=== PATIENT | male | born 1950 | race Caucasian/White ===

== ENCOUNTER → 2024-05-29 07:18 | Outpatient (REF) | payer MEDICARE, OTHER, SELFPAY | LOC: RAD 07:18 | PROVIDERS: ATTENDING PHYSICIAN Student in an Organized Health Care Education/Training Program; FAMILY PHYSICIAN Family Medicine | DX: M47.816 Spondylosis without myelopathy or radiculopathy, lumbar region (principal); M41.86 Other forms of scoliosis, lumbar region; M54.50 Low back pain, unspecified | CPT/HCPCS: 72131 ==

== ENCOUNTER → 2024-08-30 09:48 | Outpatient (REF) | payer MEDICARE, OTHER, SELFPAY | LOC: HWRAD 09:48 | PROVIDERS: ATTENDING PHYSICIAN Internal Medicine Critical Care Medicine; FAMILY PHYSICIAN Family Medicine | DX: Z87.891 Personal history of nicotine dependence (principal) | CPT/HCPCS: 71271 ==

== ENCOUNTER → 2024-12-05 08:55 | Outpatient (REF) | payer MEDICARE, OTHER, SELFPAY | LOC: RCS 08:55 | PROVIDERS: ATTENDING PHYSICIAN Internal Medicine Cardiovascular Disease; FAMILY PHYSICIAN Family Medicine | DX: I48.0 Paroxysmal atrial fibrillation (principal) | CPT/HCPCS: 93306 ==

== ENCOUNTER 2025-06-05 09:03 | Inpatient (IN) | payer MEDICARE, OTHER, SELFPAY ==
[2025-06-05 09:22] VITALS: BP 126/84
--- NOTE | 2025-06-05 09:25 | PTCARENOTE ---
Addendum entered by Deborah Sotelo RN 06/05/25 11:46:
Pt has dressing on left upper chest (pacemaker site) Per Susana Tyler, do not remove dressing today. Dressing is CDI, pt offers no complaints of pain or discomfort at this time.
Original Note:
pt arrived as direct admit, VSS, Vpaced on tele. AOx3, no complaints of pain or discomfort. Independent OOB with cane. at bedside. Susana Tyler notified of arrival. Oriented to room and unit. Call catalan within reach.
[2025-06-05 10:23] LABS: Hematocrit 47.0 % (39.0-52.0); Hemoglobin 16.0 g/dL (13.0-18.0); Mean Corp Hgb Conc. 34.0 g/dL (33.0-37.0); Mean Corpuscular Volume 104.9 fL (80.0-94.0); Nucleated Red Blood Cells % 0 % (-); Platelet Count 176 10^3/uL (130-400); Red Cell Dist. Width 13.1 % (11.5-14.5)
[2025-06-05 10:49] LABS: ALT (SGPT) 21 U/L (0-50); AST (SGOT) 24 U/L (17-59); Albumin 4.4 g/dl (3.5-5.0); Alkaline Phosphatase 82 U/L (38-126); Blood Urea Nitrogen 17 mg/dl (9-20); Calcium 9.6 mg/dl (8.4-10.2); Carbon Dioxide 29 mmol/L (22-30); Chloride 102 mmol/L (98-107); Glucose 107 mg/dl (70-99); Magnesium 2.1 mg/dl (1.6-2.3); Potassium 4.3 mmol/L (3.5-5.1); Sodium 138 mmol/L (135-145); Total Protein 7.3 g/dl (6.3-8.2); eGFR > 60.00
[2025-06-05] MEDS: LASIX PO (11:05)
[2025-06-05] MEDS: MAGNESIUM OXIDE PO (11:05)
[2025-06-05] MEDS: APRESOLINE PO (11:05)
[2025-06-05] MEDS: MUCINEX PO (11:05)
[2025-06-05] MEDS: TOPROL XL PO (11:05)
[2025-06-05] MEDS: ZITHROMAX PO (11:06)
[2025-06-05] MEDS: KCL PO (11:06)
--- NOTE | 2025-06-05 11:51 | CON.CAR ---
Addendum entered and electronically signed by Marcio Rincon MD 06/05/25 16:00:
Patient seen, interviewed and examined by me.
[ ]
Well-appearing, no acute distress
Regular rate and rhythm with normal S1 and S2, no S3 no S4. There is a grade 1/6 apical holosystolic murmur and no rubs. PMI is normally placed.
Dressing over left chest is clean and dry
Lungs are clear to auscultation bilaterally without wheezes rales or rhonchi.
Abdomen soft nontender nondistended with normoactive bowel sounds
Extremities show trace pretibial edema bilaterally no clubbing or cyanosis.
Neurologic exam is grossly nonfocal.
Assessment/plan
Pacemaker lead erosion suspected infection:
He has lost weight and noticed that wearing his seatbelt was starting to bother him and when he inspected the site he thought he could see a wire eroding through the skin. Patient was then away on an overseas trip and when he returned on 05/28/2025
he called the office to say that he could now very clearly see his device through the skin
His left upper chest pacemaker has eroded through the skin. While he has demonstrated no overt signs of clinical infection, he is at high risk for endovascular infection. Case is complicated by the fact that he is pacemaker dependent. He has been
admitted today for planned generator and lead extraction tomorrow along with right sided externalized pacemaker implant followed by eventual implantation of a permanent dual-chamber system.
His last dose of Xarelto was on 06/03/2025. His last dose of Jardiance was also on 06/03/2025.
Check blood cultures x 2. Will plan to obtain deep tissue cultures at time of device and lead extraction 06/06/2025. Note, as an outpatient he has been on oral Keflex 500 mg 3 times daily.
Original Note:
Documented by User: Susana Tyler PA-C 06/05/25 12:13
Consultation
Consultation Request
Date/Time Consultation Requested: 06/05/2025
Performing Provider: Dr. Marcio Rincon
Reason for Consultation: H&P for direct admission for device extraction
Medical History
-
History of Present Illness:
Patient presents to the hospital today as a direct admission for planned device and lead extraction for pocket erosion and possible PPM infection. Patient had a Medtronic BiV PPM placed 07/2018. Patient was seen in the office on 11/01/2024 and
appeared to be doing well at that time. Patient called our office on 05/13/2025 with concern that he could see wires protruding from his PPM pocket. Patient said that he had lost weight and noticed that wearing his seatbelt was starting to bother
him and when he inspected the site he thought he could see a wire eroding through the skin. Patient was then away on an overseas trip and when he returned on 05/28/2025 he called the office to say that he could now very clearly see his device
through the skin and patient was brought to the office for evaluation same day. Left lateral border of pacemaker was visible with pocket opening at about the size of a dime. The area was cleaned with Betadine and sterile dressing with Tegaderm
applied. Patient was started on Keflex 500 mg TID and direct admission for device and lead extraction arranged. In the meantime patient denies any fevers or chills and he has left the dressing in place and untouched. His last dose of Xarelto was
on 06/03/2025. His last dose of Jardiance was also on 06/03/2025.
PMH:
s/p Medtronic BiV PPM 07/2018
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
Permanent Afib
s/p PVI and Convergent ablations
s/p AV node ablation 01/25/20
Chronic Anticoagulation with Xarelto
Chronic HFpEF, proBNP 1250
Improved CM EF was 40-45% by echo in 2016, improved to 55-60% by echo 2021 and stable at 55 to 60% by echo 12/05/2024
HTN
HLD
COPD with nocturnal oxygen
PVD with peripheral neuropathy
h/o DVT
h/o angioedema with ISAURA inhibitors
Past Medical History
Past Medical History: Other (see HPI)
Past Surgical History: Cardiac (PVI, Convergent, PPM), Tonsilectomy and Other (Open Ladd's procedure and colostomy reversal 2010, laminectomy, rhizotomy, open incisional hernia repair with preperitoneal mesh, I&D left lower extremity and wound
VAC)
Social History
Tobacco: Former Smoker
Alcohol: Occasional
Drug: None
Personal:
Living: With Family
Employment: Retired
Family History
Family History: CAD, Hypertension and Other (DM, AAA)
Allergies / Home Medications
Allergy/AdvReac Type Severity Reaction Status Date / Time
ISAURA Inhibitors Allergy Anaphylaxis Verified 09/20/22 23:24
lisinopril Allergy Anaphylaxis Verified 09/20/22 23:24
�Medication �Instructions �Recorded �Confirmed �Type
rivaroxaban 20 mg tablet (Xarelto) 20 mg PO QPM #90 tabs 04/11/17 06/05/25 Rx
krill 500 mg-omega-3 150 mg-dha 45 1 ea PO DAILY herbal 07/13/19 06/05/25 History
mg-epa 75 sb-qnvjekh-bhhid capsule
(krill oil)
fluticasone fur. 100 mcg-umeclid 1 puff inhalation R DAILY 08/08/19 06/05/25 History
62.5 mcg-vilant 25 mcg Lung/breathing issues
inhalat.powder (Trelegy Ellipta)
metoprolol succinate 50 mg 50 mg PO DAILY Blood pressure 10/15/20 06/05/25 History
tablet,extended release 24 hr
multivitamin with folic acid 400 1 tab PO DAILY Supplement 10/15/20 06/05/25 History
mcg tablet (Tab-A-Colleen)
hydralazine 10 mg tablet 10 mg PO BID 30 days #60 tabs 09/14/22 06/05/25 Rx
guaifenesin 600 mg tablet, 1,200 mg PO BID Congestion 09/20/22 06/05/25 History
extended release 12 hr (Mucinex)
furosemide 80 mg tablet 80 mg PO BID 30 days #60 tabs 09/25/22 06/05/25 Rx
potassium chloride 20 mEq 60 meq PO BID 06/05/25 06/05/25 History
tablet,extended
release(part/cryst) (Klor-Con M)
Review of Systems
-
History Source: Patient and Family ( sitting bedside)
All other systems: Negative unless noted
Physical Exam
Vital Signs
Temp Pulse Resp BP Pulse Ox
97.8 F 64 16 126/84 94
06/05/25 09:23 06/05/25 09:45 06/05/25 09:23 06/05/25 09:22 06/05/25 09:23
Gen: NAD, AAOx3
HEENT: EOMI, MMM
CV: Left ACW covered in clean, dry dressing. V-paced on telemetry. Reg, 08/27 LSB murmur
Lungs: RA. CTA B/L, no wheeze
Abd: ND
Ext: No edema B/L LE
Skin: Warm, dry, pink. No rash
Neuro: Non-focal
Lab Results
06/05/25 10:13
06/05/25 10:13
Jym-B-Gzfhatkfelo Pept 555 pg/ml 06/05/25 10:13
Impression / Plan
-
PCP: Dr. Malhotra
Reciprocating Drill Operator: Dr. Gurvinder Rincon
Impression:
Direct admission for planned device and lead extraction for possible PPM infection, admitted 06/05/2025
Pacemaker pocket erosion seen in the office 05/28/2025
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
s/p Medtronic BiV PPM 07/2018
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
Permanent Afib
s/p PVI and Convergent ablations
s/p AV node ablation 01/25/20
Chronic Anticoagulation with Xarelto
Chronic HFpEF, proBNP 1250
Improved CM EF was 40-45% by echo in 2016, improved to 55-60% by echo 2021 and stable at 55 to 60% by echo 12/05/2024
HTN
HLD
COPD with nocturnal oxygen
PVD with peripheral neuropathy
h/o DVT
h/o angioedema with ISAURA inhibitors
Echo 08/02/19:�EF 55%, dilated RV with overall preserved RV systolic function, mild MR, mild TR, dilated aortic root and proximal ascending aorta
Echo 08/13/2021 at [facility]: EF 50%, basal inferior wall motion abnormality, severe biatrial dilation, estimated PAP43 mmHg, mild-moderate MR, moderate TR
Echo 07/23/2022 at [facility]: EF 55-60%, elevated PAP at 65 mmHg, moderate TR
Echo 12/05/2024: EF 55 to 60%, severely dilated LA/RA, mild MR, moderate TR with PAP 40 mmHg
Plan:
-Patient presents to the hospital today as a direct admission for planned device and lead extraction for pocket erosion and possible PPM infection. Patient had a Medtronic BiV PPM placed 07/2018. Patient was seen in the office on 11/01/2024 and
appeared to be doing well at that time. Patient called our office on 05/13/2025 with concern that he could see wires protruding from his PPM pocket. Patient said that he had lost weight and noticed that wearing his seatbelt was starting to bother
him and when he inspected the site he thought he could see a wire eroding through the skin. Patient was then away on an overseas trip and when he returned on 05/28/2025 he called the office to say that he could now very clearly see his device
through the skin and patient was brought to the office for evaluation same day. Left lateral border of pacemaker was visible with pocket opening at about the size of a dime. The area was cleaned with Betadine and sterile dressing with Tegaderm
applied. Patient was started on Keflex 500 mg TID and direct admission for device and lead extraction arranged. In the meantime patient denies any fevers or chills and he has left the dressing in place and untouched. His last dose of Xarelto was
on 06/03/2025. His last dose of Jardiance was also on 06/03/2025.
-ECG reviewed by me is V paced
-The previously placed sterile dressing remains in place from 05/28/2025, it was not removed by me.
-Continue Keflex 500 mg TID
-Check blood cultures x 2. Plan is to also obtain deep tissue cultures at time of device and lead extraction 06/06/2025. Pending results could consider ID consultation.
-Check echo
-Patient is V-paced on telemetry and has previous AV node ablation from 2019 with known permanent A-fib. His usual dose of Toprol XL 50 mg daily has been continued.
-Outpatient dose of Xarelto 20 mg daily is on hold, last dose was 06/03/2025.
-EF previously 40 to 45% by echo in 2016, but improved and stable at 55 to 60% by echo 12/05/2024.
-No evidence of acute HF. Outpatient dose of Lasix 80 mg PO BID will be continued.
-Toprol-XL as noted above
-Outpatient dose of hydralazine 10 mg BID will be continued
-Outpatient dose of Jardiance 10 mg daily is on hold. Last dose was 06/03/2025.
-Patient brought his CPAP in from home that he hooked up to oxygen at 3 L, this will be continued.

Documented by User: Marcio Rincon MD 06/05/25 15:52
Data Reviewed
-
EKG: Tracing Personally Visualized and interpreted
[2025-06-05 12:00] VITALS: BMI 27.1
--- NOTE | 2025-06-05 14:35 | CM ---
spoke to pt in room, he is prev indep, lives with his in a 2 story home with a first floor set up and no steps to enter. he has home O2 @ 3L he uses at night with his CPAP. he denies any dc planning needs . plan is for dc to home when medically
stable.
[2025-06-05 15:08] VITALS: BP 122/81
[2025-06-05] MEDS: LASIX 80 MG PO (16:54)
[2025-06-05] MEDS: ANCEF 10 IV ×2 (17:06→23:12)
[2025-06-05 19:11] VITALS: BP 124/66
[2025-06-05] MEDS: APRESOLINE 10 MG PO (19:44)
[2025-06-05] MEDS: KCL 60 MEQ PO (19:44)
[2025-06-05] MEDS: MUCINEX 600 MG PO (19:44)
[2025-06-05 23:12] VITALS: BP 126/88
--- NOTE | 2025-06-05 23:21 | PTCARENOTE ---
Received patient at change of shift. V paced on the monitor, HR in the 60s. NPO at midnight, pt verbalizes understanding. L chest with dressing CDI. No complaints from pt at this time, call catalan within reach.
[2025-06-06] VITALS (17 sets, daily range): BP systolic 101–158; BP diastolic 69–127; BMI 27.0
[2025-06-06 05:04] LABS: Hematocrit 41.8 % (39.0-52.0); Hemoglobin 14.3 g/dL (13.0-18.0); Mean Corp Hgb Conc. 34.2 g/dL (33.0-37.0); Mean Corpuscular Volume 103.5 fL (80.0-94.0); Platelet Count 165 10^3/uL (130-400); Red Cell Dist. Width 13.2 % (11.5-14.5)
[2025-06-06 05:38] LABS: Blood Urea Nitrogen 15 mg/dl (9-20); Calcium 8.9 mg/dl (8.4-10.2); Carbon Dioxide 28 mmol/L (22-30); Chloride 103 mmol/L (98-107); Estimated Creatinine Clearance 103 ml/min; Glucose 119 mg/dl (70-99); Potassium 4.5 mmol/L (3.5-5.1); Sodium 137 mmol/L (135-145); eGFR > 60.00
--- NOTE | 2025-06-06 07:05 | PTCARENOTE ---
Received handoff report from nightshift RN. Report given to OR, patient taken in bed by OR team. Informed claudio's of new room on CVICU post-op. patient belongings brought to [id number].
[2025-06-06 08:59] LABS: Urine Character Clear (Clear)
[2025-06-06 09:34] LABS: Urine Red Blood Cell 0-2 /HPF (0-2)
--- NOTE | 2025-06-06 11:13 | CM ---
Chart reviewed. Patient is getting a lead extraction today. Patient is independent of ADLS, lives with his in a 1st floor apartment, ambulates with a SPC and wears home O2. Plan is for the patient to return home. CM to follow
[2025-06-06] MEDS: MAGNESIUM OXIDE PO (12:14)
[2025-06-06] MEDS: KCL PO (12:14)
[2025-06-06] MEDS: MUCINEX PO (12:14)
[2025-06-06] MEDS: LASIX PO (12:14)
--- NOTE | 2025-06-06 13:07 | ITS.CL.PN ---
Correctional Program Officer - Procedure Note
Procedure
Procedure Note:
Extraction Procedure:
Laser Extraction of MANAGEMENT TRAINEE MARKETING-P system including extraction of HIS, RV septal and atrial leads and implantation of temporary permanent pacemaker
Mr. Loyd is a 75 yrs old gentleman (known to Dr. Rincon, his primary Personnel Consultant) with chronic HFrecovered EF (EF 40% in 2017 to 60% in 2024) s/p MANAGEMENT TRAINEE MARKETING-P s/p AVJ ablation, persistent AF s/p convergent PVI, HTN, PVD, and advanced COPD who had
his pocket infection and erosion of the skin over the generator now on antibiotics and is in need of his MANAGEMENT TRAINEE MARKETING-P system extracted out.
Indications:
Infected MANAGEMENT TRAINEE MARKETING-P system.
Date of the Procedure: 06/06/2025
Pre-Operative Diagnosis: Infected MANAGEMENT TRAINEE MARKETING-P system.
Post-Operative Diagnosis: Infected MANAGEMENT TRAINEE MARKETING-P system.
Procedure Performed: Multiple lead (RV lead, His lead and the atrial lead) extraction and implantation of temporary permanent pacemaker.
Performing Physicians:
Jitendra Dent MD
Anesthesia:
See anesthesia records
Detailed Description of the Procedure:
Written informed consent was obtained from the patient after a full explanation of the risks and benefits of the procedure. The patient was brought to the lab in the fasting state. Prophylactic antibiotics were given prior to the start of the
procedure. Continuous electrocardiographic and hemodynamic monitoring was initiated.
The initial rhythm was BiV paced rhythm.
The PPM device was programmed to VVI 70.
General anesthesia with intubation and mechanical conventional ventilation used. Anesthesia staff performed intubation monitored the patient during case. The ventral torso was meticulously prepared with surgical scrub and allowed to dry with no
pooling. Sterile draping was applied to cover the operative field. The image intensifier was draped with a sterile bag and positioned over the patient's chest.
A surgical pause was performed in accordance with hospital regulations. Anesthesia service provided sedation as reported separately. Antibiotics administered IV for risk of bacterial colonization.
There was severe anemia noted pre-operative and blood transfusion was given pre-op to avoid any drop or hemodynamic compromise.
Venogram:
A 20 ml upper extremity venogram demonstrated patent but convoluted venous system on the left subclavian vein.
Groin Prep and vascular access:
After infiltration with lidocaine, large bore venous access was established via the right and left femoral veins. An intra-arterial catheter was placed via the left femoral artery for emergency access.
Complaint Balloon SVC inflation:
A 12 Fr sheath was placed and the guidewire was placed from the right femoral vein to the right IJ. An endovascular occlusion balloon was advanced over the guidewire into the SVC. The balloon was inflated with 20% contrast and adequate occlusion of
the SVC identified. The balloon was deflated and pulled down to the IVC.
Temporary pacemaker placement:
Using 8 Fr sheath, a temporary pacing wire was placed in the right femoral vein. The temp wire was placed in the RV and adequate pacing threshold obtained. The Temp wire was paced 70 bpm.
Pocket Exploration:
After infiltration with lidocaine, an incision was made in the left delto-pectoral groove over the previously implanted device. Using blunt dissection and electrocautery, the incision was carried down to the level of the device, being careful to
maintain adequate hemostasis and not disrupt the previously implanted lead. Fluoroscopy was performed with showed normal appearance of the existing lead during the procedure. The pocket showed exposed generator from the skin and there was pus noted
behind the generator. The aerobic and anaerobic cultures were obtained. The generator was removed from the pocket. The lead was released from the scar tissue and the fibrotic tissue was removed.
RV lead extraction:
The ICD lead was removed from the generator. The stylet was advanced tot he tip and attempts were made to unscrew the helix but the screw did not move. The lead waas pulled and was not moving. The lead was clipped approximately 4 cm proximal to the
entry site into the vein using lead cutting scissors.
The inner channel of the lead was sized and an Lead Locking Device (LLD) EZ was advanced to the distal tip. The locking mechanism was engaged and the stylet was fixed in position in the lead.
An ETHICON SA8 2 Perma-hand Silk, black braided, 60inch was fixed to the proximal end of the lead to establish additional control.
A 14F LivradanetLetsVenture Laser Sheath was tested using the CVX-300 system and found to meet specifications. Under fluoroscopic guidance, tension was applied to the lead via the locking stylet and the suture. Along with an outer sheath, the laser sheath
was advanced over the pacing lead under fluoroscopic guidance until resistance was met. Laser energy was applied in up to 10-second bursts in regions of resistance allowing advancement of the sheaths under fluoroscopic guidance. Laser energy was
applied at the venous entry site, and in the subclavian vein. There was extensive fibrosis noted. The laser was able to advance the sheath to the subclavian vein. Using the outer VisiSheath the adhesions were released with mechanical manipulation.
The laser and the outer sheath was again advanced over the lead with countertraction from the outer sheath. Additional short laser was applied at the tip and the lead was released. The RV lead was freed and was pulled into the sheath.
The RAS and hemodynamics were monitored under flouroscopic views with no change in BP or hemodynamics and RV cavity and the tricuspid valve remained unchanged.
The lead and sheath were withdrawn from the venous system. Hemostasis at the venous entry site was obtained using manual pressure.
RA lead extraction:
The RA lead was removed from the generator and a standard sylet was advanced to the RA lead. It was able to reach the tip. The rotatory tool ranch was not able to unscrew the active fixation mechanism. The lead was not moving bu traction.
The lead was clipped approximately 4 cm proximal to the entry site into the vein using lead cutting scissors.
The inner channel of the lead was sized and an Lead Locking Device (LLD) EZ was advanced to the distal tip. The locking mechanism was engaged and the stylet was fixed in position in the lead.
An ETHICON SA8 2 Perma-hand Silk, black braided, 60inch was fixed to the proximal end of the lead to establish additional control.
A 14F Spectranetics Laser Sheath was tested using the CVX-300 system and found to meet specifications. Under fluoroscopic guidance, tension was applied to the lead via the locking stylet and the suture. Along with an outer sheath, the laser sheath
was advanced over the pacing lead under fluoroscopic guidance until resistance was met. Laser energy was applied in up to 10-second bursts in regions of resistance allowing advancement of the sheaths under fluoroscopic guidance. Laser energy was
applied at the venous entry site, and in the subclavian vein. There was extensive fibrosis noted. The laser was able to advance the sheath to the subclavian vein. Using the outer VisiSheath the adhesions were released with mechanical manipulation.
Once subclavina adhesison are released, the atrial lead was easy to manipulate and was able to get released from the atrial tissue. The lead was freed with traction and counter traction. The lead was freed and was removed out of the body.
LV / HIS lead extraction:
The His lead dislodged with RV lead manipulation. The lead was pulled out of the RV to the RA by traction but was not able to be pulled out to the SVC.
The 3830 lead was shaved from the proximal end to be able to pull through the 14 Fr laser sheath. An ETHICON SA8 2 Perma-hand Silk, black braided, 60inch was fixed to the proximal end of the lead to establish additional control.
The laser energy was applied till the sheath was in the suclavian vein. The lead was able to be pulled out again.
Pocket debridement and capsulectomy:
The infected material was removed from the pocket. The Sutures materials were removed. The deep muscle and the subcutaneous tissues were debrided.
Then the betadine soaked Kerlex was packed into the pocket and was pulled out with removing of the infected tissue ultimately finishing up the debridement.
Wound debridement:
The pocket was opened and explored. The necrotic tissue was excised and removed using blade and bovie /plasma blade. Once the necrotic tissue was excised then the pocket was sloughed out using Betadine soaked Kerlex. The necrotic tissue involved the
skin, subcutaneous tissues, fascia and the part of the pectoralis major muscle tissue. All the necrotic tissue was excised until the fresh blood is noted with normal appearing muscle is seen.
- The skin breakdown wound was over 2 cm in size at the beginning and the incision was debrided. The tissues were then approximated and deep layerrs were sutures together using 2-0 VLoc sutures.
The pocket was then deemed clean. A LORENA drain was placed inside the pocket and then secured to the skin. The wound was then closed using 2-0 VLOC sutures. Steri-strips and a sterile dressing were then applied.
Temporary Permanent Pacemaker placement:
Patient was dependent on the pacing and the right IJ area was selected for temp permanent pacemaker placement. The procedure site was meticulously prepared with surgical scrub and allowed to dry with no pooling. Sterile draping was applied to cover
the procedure site. The image intensifier was draped with sterile bag and positioned over the patient.
A time out was performed prior to the start of the procedure.
Using the ultrasound, the right IJ was identified. Local anesthesia was administered subcutaneously using 1% lidocaine. Using ultrasound guidance, the right IJ was cannulated and a guide wire was placed into the RA cavity
Using a peel-away sheath, a 58 cm permanent pacing lead was placed into the RV cavity and actively secured in the RV cavity. Adequate impedance, and thresholds were noted. The lead was secured to the skin using 2-0 Ethibond sutures.
Medtronic lead 5076-58 SN# [id number].
There was excellent sensing, pacing, and impedance from the leads.
The pacemaker lead has threshold of 0.75 @ 0.4ms , impedance 988 ohm. There was temp wire pacing and sensing of the paced beats werre 8 mV.
The device is set at VVI 70 bpm.
The peel away sheath was removed and the pacemaker wire was secured to the skin using the 2-0 Ethibond suture and the sleeve.
The pacemaker lead was dressed using a biopatch and a tegaderm was placed. The pacemaker lead was placed in the connection box to be attached to external pacemaker.
Procedure End:
The procedure was tolerated well. A bandage was applied to the incision area to be removed in a day. A pressure dressing was applied.
The groin sheaths were removed from the groin. Manual pressure applied to access sites to achieve hemostasis. Right sided venous sheath were secured using Figure of 8 suture.
Anesthesia was reversed and the anesthesia staff extubated then observed the patient until the return of pre-sedation mental status. The patient was transferred to the recovery area.
Estimated Blood loss:
10 cc
Specimens Removed:
Deep pocket aerobic and anaerobic cultures were obtained..
Urine output:
None
Packs / Drains/ Tubes:
None
Instrument / Sponge Count Correct:
Yes
Complications of the Procedure:
None
Condition of Patient at Time of Transfer:
Hemodynamically stable with no neurological or vascular compromise.
Explanted Device information:
Device information: �
Initial implant date: 08/08/2019
Generator: Medtronic; Model: W1TR01 MANAGEMENT TRAINEE MARKETING-P; Serial # [id number]
Atrial Lead: Medtronic; Model: 5076-52; Serial # [id number]
RV Lead: Medtronic; Model: 5076-58; Serial # [id number]
LV / HIS pacing lead: Medtronic; Model: 3830; Serial # [id number]
Implanted lead:
- RV Lead: Medtronic; Model: 5076-58; Serial # [id number]
Summary:
Successful extraction of the MANAGEMENT TRAINEE MARKETING-P system including RV, RA and conduction system pacing lead and implantation of temporary pacemaker during the case and temporary permanent pacemaker placement at the end of the case.
Results/Recommendations:
1. Please follow up CXR and ECHO
2. Please Admit to ICU for observation.
3. Continue antibiotics as per ID
Jitendra Dent MD [facility]
Electrophysiology
--- NOTE | 2025-06-06 13:08 | PTCARENOTE ---
Received pt from EP lab team. AAO x 3. Groggy but easily arousable. Denies pain on arrival. 100% V paced. Rt radial A line transducing, Leveled, recalibrated, and flushed. RT IJ pacer dressing c,d,i. Lt chest wall pressure dressing also
c,d,i. 4 L NC 98%. abdomen soft and non tender. Sanderson draining clear yellow urine. Pulses palpable. Bilateral groins c,d,i.
[2025-06-06] MEDS: APRESOLINE PO (13:32)
[2025-06-06] MEDS: ANCEF 10 IV ×2 (13:32→15:38)
[2025-06-06] MEDS: ROXICODONE 5 MG PO (13:46)
[2025-06-06] MEDS: LASIX 80 MG PO (15:38)
--- NOTE | 2025-06-06 16:17 | PTCARENOTE ---
Rt groin figure of 8 sutures cut. No bleeding noted Dry dressing applied. VSS
--- NOTE | 2025-06-06 16:55 | PTCARENOTE ---
Assist x 1 oob to chair., Gait steady with minimal assist. Bilateral groin dressing c,d,i. VSS. Sitting up in the chair.
[2025-06-06] MEDS: TOPROL XL PO (17:58)
[2025-06-06] MEDS: MUCINEX 600 MG PO (19:24)
[2025-06-06] MEDS: APRESOLINE 10 MG PO (19:24)
[2025-06-06] MEDS: KCL 60 MEQ PO (19:24)
--- NOTE | 2025-06-06 20:00 | PTCARENOTE ---
Assumed care of patient at 1999. Patient found resting in bed at time of assessment. Patient is AOx4, follows commands appropriately, moves all extremities. Lung sounds are diminished at the bases, patient is on RA saO2 95%. Heart sounds are
audible, patient is 100% vpaced on the monitor via temporary PM in L neck. Pulses are normal palpable and there is trace edema in the BLE. Patient has active BS in all four quadrants and voids in the bathroom. Patient has bilateral groin punctures
where sheath were inserted with 4x4 gauze dressing that is CDI, L upper chest incision with pressure dressing CDI, R neck puncture has 4x4 gauze and tegaderm with old drainage otherwise itnat. There is a 20G in L FA and 18G in R FA. No c/o pain.
Call catalan within reach.
[2025-06-06] MEDS: TYLENOL 650 MG PO (22:08)
[2025-06-07] VITALS (8 sets, daily range): BP systolic 102–142; BP diastolic 72–94; BMI 26.9
--- NOTE | 2025-06-07 | PTCARENOTE ---
Patient reassessed. Given tylenol HS for headache. VSS. Remains vpaced on the monitor. Call catalan within reach.
[2025-06-07] MEDS: ANCEF 10 IV ×3 (00:50→16:36)
--- NOTE | 2025-06-07 04:00 | PTCARENOTE ---
Patient reassessed. AM labs obtained. EKG obtained. Weight obtained. VSS. Call catalan within reach.
[2025-06-07 04:26] LABS: Hematocrit 41.5 % (39.0-52.0); Hemoglobin 13.8 g/dL (13.0-18.0); Mean Corp Hgb Conc. 33.3 g/dL (33.0-37.0); Mean Corpuscular Volume 105.9 fL (80.0-94.0); Platelet Count 163 10^3/uL (130-400); Red Cell Dist. Width 13.1 % (11.5-14.5)
[2025-06-07 04:55] LABS: Blood Urea Nitrogen 15 mg/dl (9-20); Calcium 9.2 mg/dl (8.4-10.2); Carbon Dioxide 27 mmol/L (22-30); Chloride 103 mmol/L (98-107); Estimated Creatinine Clearance 120 ml/min; Glucose 119 mg/dl (70-99); Magnesium 2.2 mg/dl (1.6-2.3); Potassium 4.9 mmol/L (3.5-5.1); Sodium 133 mmol/L (135-145); eGFR > 60.00
--- NOTE | 2025-06-07 07:17 | W.PN.ANS.POP ---
Anesthesia Post Operative
- Anesthesia Post Op Note
Vital Signs Stable-See Nursing Note: Yes
Airway Patent: Yes
Adequate Pain Control: Yes
Change in Mental Status: No
Current Postoperative Nausea & Vomiting: No
Anesthesia Complications: No
General Anesthetic Recall: No
Unplanned Admission: No
Post Op Hydration Adequate: Yes
--- NOTE | 2025-06-07 08:30 | PTCARENOTE ---
Assumed care of patient. Walking rounds completed with previous RN. Pt assessed while he was sitting in the chair. Pt alert and oriented x4. Pt denies pain, nausea, and shortness of breath. KEY with equal strength throughout. 100% v-paced on tele
with rates in the 70s. BP 142/86. Bilateral radial and DP pulses palpable. +1 lower extremity edema noted. POX 96% on RA. Lungs clear throughout. Occasional productive cough noted, unchanged from at home as per patient. Abdomen soft, round,
nontender. +BS BM today as per patient. Tolerating meals. Pt voiding adequate amounts of clear yellow urine, pt educated on importance of measuring urine, pt reluctantly compliant. PIV x2 intact. Left upper chest wall incision unable to visualize
due to pressure dressing, CDI. B/l groin puncture sites soft, nontender, dressing CDI. Right neck temporary permanent pacemaker with small amount of oozing outlined, no additional oozing. See MAR for medication administration. See worklist for
complete nursing assessment. Plan of care reviewed and patient in agreement.
[2025-06-07] MEDS: MAGNESIUM OXIDE 400 MG PO (08:39)
[2025-06-07] MEDS: LASIX 80 MG PO ×2 (08:40→16:36)
[2025-06-07] MEDS: TOPROL XL 50 MG PO (08:40)
[2025-06-07] MEDS: MUCINEX 600 MG PO ×2 (08:40→19:41)
[2025-06-07] MEDS: ZITHROMAX 500 MG PO (08:40)
[2025-06-07] MEDS: KCL 60 MEQ PO ×2 (08:40→19:41)
[2025-06-07] MEDS: APRESOLINE PO (08:40)
[2025-06-07] MEDS: APRESOLINE 10 MG PO ×2 (08:50→19:41)
--- NOTE | 2025-06-07 10:37 | CON.ID ---
Addendum entered and electronically signed by Alex King DO 06/07/25 14:43:
I personally performed a history and physical exam of the patient and discussed management with the resident. I reviewed the resident's note and agree with the documented findings and plan of care HPI/CC.
Assessment / Plan
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
#Permanent Afib s/p ablation
#Chronic HFpEF
#HTN
#HLD
#COPD with nocturnal oxygen
#PVD with peripheral neuropathy
Plan:
No leukocytosis, no fever no chills
Has been on treatment with Keflex 500 mg 3 times daily before admission
Currently on Ancef and azithromycin
Pocket cultures currently in progress. Will await further data.
Follow WBC count, temperature curve
Continue Ancef for today. Discontinue further azithromycin.
Original Note:
Consultation
-
Date/Time Consultation Requested: 06/07/2025 08:24
Date/Time Consultation Performed: 06/07/2025 09:45
Requesting Provider: Mariel Yeboah
Performing Provider: Dr. Alex King, Dr. Trisha Santizo
Reason for Consultation: Device pocket erosion, s/p lead/device extraction,
Chief Complaint / Past History
Chief Complaint
Device pocket erosion, s/p lead/device extraction
History of Present Illness
75-year-old male with a significant past medical history of Medtronic BiV pacemaker placed on July 2018, permanent A-fib status post PVI and compression ablations and AV node ablation in January 2020, chronic HFpEF, hypertension, hyperlipidemia
presented to the hospital for planned device and lead extraction for pocket erosion and possible infection of the PPM. Patient was seen by cardiology in the office earlier this year and October when he was feeling well and had no complaints. He
continued to lose weight throughout the year and called the cardiology office on May 13, 2025 regarding concerns that he was feeling irritation around the PPM pocket. His main concern at the time was that wearing his seatbelt was bothering
him. Following that, he went to an overseas trip to [place] and returned back on 05/28/2025 following which he could very clearly see an opening in the skin around the pacemaker and patient was brought to the office at that time. Upon examination,
the left lateral border of the pacemaker was visible with the pocket opening. He was started on Keflex 500 mg 3 times daily at that time and was scheduled for device and lead extraction. He denies any fevers or chills or any tenderness in the area
at the time.
Patient underwent successful extraction of the CHIEF CATALYST OPERATOR�P system including RV, RA conduction system pacing leads and was implanted with the temporary pacemaker at the end of the case on 06/06/2025. Following that, he has not had any fever or chills and
his white blood cell count has been normal. Deep pocket aerobic and anaerobic cultures were obtained during the procedure and there was thought to be some pus noted while extracting the pacemaker. He has been on azithromycin and cefazolin since
06/05/2025. Overall has no acute concerns at this time and looking forward to going home today.
Past History
Additional Past Medical History:
Permanent Afib
s/p PVI and Convergent ablations
s/p AV node ablation 01/25/20Chronic Anticoagulation with Xarelto
Chronic HFpEF, proBNP 1250
HTN
HLD
COPD with nocturnal oxygen
PVD with peripheral neuropathy
Additional Past Surgical History:
Laser Extraction of CHIEF CATALYST OPERATOR-P system including extraction of HIS, RV septal and atrial leads and implantation of temporary permanent pacemaker ()
Medtronic BiV PPM 07/2018
AV node ablation 01/25/2020
Allergy History:
ISAURA Inhibitors Allergy (Verified 09/20/22 23:24)
Anaphylaxis
lisinopril Allergy (Verified 09/20/22 23:24)
Anaphylaxis
Medications Reviewed: Yes
Current Antibiotics:
Cefazolin 2gm Q8
Azithromycin 500mg PO MWF
Social History
Tobacco: Former Smoker
Alcohol: Occasional
Drug: None
Personal:
Living: With Family
Employment: Retired
Family History
Family History: CAD and Hypertension
Review of Systems
Review of Systems
General: Negative Fever or Chills
Cardiovascular: Negative Chest Pain
Respiratory: Negative Dyspnea or Cough
Neurological: Negative Headache or Dizziness
Vital Signs
Temp Pulse Resp BP Pulse Ox
98.5 F 71 16 142/86 96
06/07/25 08:00 06/07/25 10:00 06/07/25 08:00 06/07/25 08:33 06/07/25 08:30
Physical Exam
Physical Exam
Constitutional: No Acute Distress, Well Developed, Comfortable and Non-toxic
Head: Normocephalic
Eyes: Sclera Anicteric
Cardiovascular: Regular Rate and S1/S2; Negative S3/S4
Pulmonary: Clear and Non Labored
Gastrointestinal: Soft, Non Tender, Non Distended and Normal Bowel Sounds
Extremities: Edema; Negative Clubbing, Cyanosis or Erythema
Skin: Warm and Dry
Wound: Other (Previous pacemaker site covered with dressing)
Neurological: Awake, Alert, Oriented and AO x 3
.
Lab / Diagnostic Study Results
06/07/25 04:15
06/07/25 04:15
Abs Immat Gran (auto) 0.0 10^3/uL (0-0.05) 06/05/25 10:13
Absolute Neuts (auto) 5.0 10^3/uL (1.4-6.5) 06/05/25 10:13
Absolute Lymphs (auto) 1.6 10^3/uL (1.2-3.4) 06/05/25 10:13
Absolute Monos (auto) 0.6 10^3/uL (0.1-0.6) 06/05/25 10:13
Absolute Basos (auto) 0.1 10^3/uL (0-0.2) 06/05/25 10:13
Immature Gran % 0.5 % (0-0.5) 06/05/25 10:13
Neutrophils % 68.3 % (42.2-75.2) 06/05/25 10:13
Lymphocytes % 21.9 % (20.5-51.1) 06/05/25 10:13
Monocytes % 8.2 % (1.7-9.3) 06/05/25 10:13
Eosinophils % 0.4 % (0-6) 06/05/25 10:13
Basophils % 0.7 % (0-2) 06/05/25 10:13
Ur Squamous Epith Cells 6-10 /LPF (Few) 06/06/25 08:00
Microbiology Results
Micro:
06/05/25 10:13 Blood Culture - Preliminary
Blood/Venous No Growth in 48 hours- Final report to follow
06/06/25 12:16 Wound Culture - Pending
Chest - Left Gram Stain - Preliminary
06/06/25 12:16 Anaerobic Culture - Pending
Chest - Left
Assessment / Plan
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
#Permanent Afib s/p ablation
#Chronic HFpEF
#HTN
#HLD
#COPD with nocturnal oxygen
#PVD with peripheral neuropathy
Plan:
No leukocytosis, no fever no chills
Has been on treatment with Keflex 500 mg 3 times daily before admission
Currently on Ancef and azithromycin
Follow WBC count, temperature curve
Continue Ancef, discontinue azithromycin
--- NOTE | 2025-06-07 11:32 | CM ---
Chart reviewed. Patient is independent of ADLS, lives with his in a 2 S[address], 1st floor set up, 0 TORO, ambulates with a SPC, wears home O2 3L. Patient being discharged with a LORENA drain and an external temporary pacemaker. Patient and
agreeable to VN. Referral sent to VN. CM to assess needs of patient being discharged with IV antibiotics. Waiting on clarification from ID. Plan is for the patient to [facility] +/- [facility]. CM to follow
--- NOTE | 2025-06-07 11:33 | PTCARENOTE ---
Pt reassessed. VSS. No changes from previous assessment. Pt voiding in urinal-adequate amounts of clear yellow urine. No drainage from LORENA drain since previous assessment.
--- NOTE | 2025-06-07 13:20 | W.PN.CD ---
Today's Communication / Plan
-
-X-ray and echo today
-Device interrogation
-Likely discharge home today
- Resume Xarelto from tomorrow
- Resume home medications otherwise
Impression / Plan
-
PCP: Dr. Malhotra
Sensor Specialist: Dr. Gurvinder Rincon
Impression:
Infected device
-Status post extraction of hardware on 06/06/2024
-Temporary permanent pacemaker implanted on right IJ with externalized pacemaker
-Dressing changed on both left shoulder with the device was extracted and the right IJ pacemaker lead
- Plan for home dressing change
-Infectious disease consult for possible antibiotic choice, duration and parenteral versus oral administration.
-Incision check in 1 week
-Decision for reimplantation as per instructions from infectious disease
-Temporary permanent device was interrogated -working well for
s/p Medtronic BiV PPM 07/2018
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
Permanent Afib
s/p PVI and Convergent ablations
s/p AV node ablation 01/25/20
Chronic Anticoagulation with Xarelto
Chronic HFpEF, proBNP 1250
Improved CM EF was 40-45% by echo in 2016, improved to 55-60% by echo 2021 and stable at 55 to 60% by echo 12/05/2024
HTN
HLD
COPD with nocturnal oxygen
PVD with peripheral neuropathy
h/o DVT
h/o angioedema with ISAURA inhibitors
Echo 08/02/19:�EF 55%, dilated RV with overall preserved RV systolic function, mild MR, mild TR, dilated aortic root and proximal ascending aorta
Echo 08/13/2021 at [facility]: EF 50%, basal inferior wall motion abnormality, severe biatrial dilation, estimated PAP43 mmHg, mild-moderate MR, moderate TR
Echo 07/23/2022 at [facility]: EF 55-60%, elevated PAP at 65 mmHg, moderate TR
Echo 12/05/2024: EF 55 to 60%, severely dilated LA/RA, mild MR, moderate TR with PAP 40 mmHg
Physical Exam
Vital Signs/Labs
Vital Signs
Temp Pulse Resp BP Pulse Ox
98.5 F 70 16 118/78 97
06/07/25 11:32 06/07/25 12:00 06/07/25 11:32 06/07/25 11:32 06/07/25 11:32
06/06/25 06/07/25 06/08/25
06:59 06:59 06:59
Actual Weight 95.2 kg 94.9 kg
06/07/25 04:15
06/07/25 04:15
Magnesium 2.2 mg/dl (1.6-2.3) 06/07/25 04:15
06/05/25
10:13
Mmn-V-Hvmjhqbbtif Pept 555
Physical Exam
Constitutional: No acute distress and Comfortable
EENT: Anicteric and Moist mucous membranes
Cardiovascular: Rhythm & rate is regular, Pedal edema is absent and JVD pressure is normal
Respiratory: Respiratory effort normal, Lungs clear to auscul. and Wheeze Absent
GI: Soft, Distention absent, Non tender and Normal bowel sounds
Neuro/Psych: Alert, Oriented, AO x 3 and Motor deficits absent
Other: Cath Site and Cardiac Device Site
Data Reviewed
-
Date of Service: June 07, 2025
Medical Decision Making: Reviewed Test Results, Test Interpretation and Review of Case with other Provider
EKG: Tracing Personally Visualized and interpreted
Echo: Report Reviewed by me
X-Ray/CT/US/MRI/NUC/PET: Image Personally Visualized and interpreted
Labs: Labs Reviewed by me
Old Records: Reviewed
Critical Care Time (in minutes): 35
--- NOTE | 2025-06-07 13:25 | W.CARD.DEVCH ---
Cardiac Device Check
-
Device: Pacemaker
Vice President Of Manufacturing: Medtronic
The patient's device was interrogated with assistance of the device factory representative followed by a complete physician review. The device had normal function. No abnormalities seen.
--- NOTE | 2025-06-07 16:30 | PTCARENOTE ---
Pt reassessed. PIV x2 painful & leaking with flushing, d.c. IV team notified and at bedside to place PIV. V-paced on tele with rates in the 70s. BP 117/73. POX 97% on RA. Surgical sites stable.
--- NOTE | 2025-06-07 20:00 | PTCARENOTE ---
Assumed care of patient at 1900. Patient found resting in bed at time of assessment. Patient is AOx4, follows commands appropriately, moves all extremities, etc. Lung sounds diminished at the bases, saO2 96% on RA, wears CPAP HS. Heart sounds are
audible, patient is 100% vpaced, there is temporary pacing wires introduced via RIJ with VVI settings. Patent has normal palpable pulses and +1 BLE. Patient has active BS in all four quadrants reports +BM during day and is voiding in urinal. There
is a 4x4 gauze dressing over R IJ site that is CDI, L upper chest incision with 4x4 gauze dressing CDI with LORENA drain, bilateral groin punctures with 4x4 gauze CDI. Patient has 20G LFA PIV. No c/o pain. Call catalan within reach.
[2025-06-07] MEDS: TYLENOL 650 MG PO (22:12)
[2025-06-08] MEDS: ANCEF 10 IV ×2 (00:07→08:05)
--- NOTE | 2025-06-08 01:13 | PTCARENOTE ---
Patient reassessed. VSS. 100% vpaced on monitor. Tylenol for headache HS. Call catalan within reach.
--- NOTE | 2025-06-08 03:00 | PTCARENOTE ---
Assumed care of patient from previous rn. Patient AAOx4, Lung sounds diminished at the bases, saO2 96% on RA, wears CPAP HS. Heart sounds are audible, patient is 100% vpaced,temporary pacing wires via RIJ with VVI settings. Patent has normal
palpable pulses and +1 BLE. Patient has active BS in all four quadrants, voiding in urinal. 4x4 gauze dressing over R IJ site CDI, L upper chest incision with 4x4 gauze dressing CDI with LORENA drain, bilateral groin punctures with 4x4 gauze CDI.
Patient has 20G LFA PIV. No c/o pain. Call catalan within reach.
[2025-06-08 05:30] VITALS: BP 143/88
[2025-06-08 06:00] VITALS: BMI 27.1
[2025-06-08 06:46] LABS: Blood Urea Nitrogen 17 mg/dl (9-20); Calcium 9.0 mg/dl (8.4-10.2); Carbon Dioxide 28 mmol/L (22-30); Chloride 103 mmol/L (98-107); Estimated Creatinine Clearance 120 ml/min; Glucose 144 mg/dl (70-99); Potassium 4.5 mmol/L (3.5-5.1); Sodium 137 mmol/L (135-145); eGFR > 60.00
[2025-06-08 08:00] VITALS: BP 134/76
--- NOTE | 2025-06-08 08:00 | PTCARENOTE ---
Resumed care of patient. Pt alert and oriented x4. Denies pain, shortness of breath, and nausea. KEY with equal strength throughout. Independent in the room. V-paced on tele with rates in the 70s from temporary/permanent pacer. BP 134/76. Heart
tones audible. Bilateral radial and DP pulses palpable. Trace edema to bilateral lower extremities. POX 97% on RA. Lungs diminished in the bases. No cough noted at this time. Abdomen soft, nontender. +BS. BM yesterday. Pt voiding independently in
the urinal, reports no issues. Left upper chest wall incision covered, dressing CDI, LORENA to left chest draining scant serosanguineous fluid. B/l groin puncture sites soft, dressings removed. Right IJ temp/permanent pacer dressing CDI. Left forearm
PIV intact. See MAR for medication administration. See worklist for complete nursing assessment. Plan of care reviewed and patient in agreement.
[2025-06-08] MEDS: LASIX 80 MG PO (08:04)
[2025-06-08] MEDS: TOPROL XL 50 MG PO (08:04)
[2025-06-08] MEDS: MAGNESIUM OXIDE 400 MG PO (08:05)
[2025-06-08] MEDS: APRESOLINE 10 MG PO (08:05)
[2025-06-08] MEDS: KCL 60 MEQ PO (08:05)
[2025-06-08] MEDS: MUCINEX 600 MG PO (08:05)
--- NOTE | 2025-06-08 11:02 | W.PN.ID1 ---
Date of Service
Date of Service: June 08, 2025
Today's Communication
Transition to oral Keflex and doxycycline.
Assessment / Plan
#Infected BOX COVERER HAND-P system s/p surgical extraction
#Permanent Afib s/p ablation
#Chronic HFpEF
#HTN
#HLD
#COPD with nocturnal oxygen
#PVD with peripheral neuropathy
Plan:
No leukocytosis, no fever no chills
Wound cultures with coag negative staph.
Continue with oral Keflex. Will add empiric doxycycline while cultures are pending. Would anticipate an additional 7-day course of antibiotics.
I had a long discussion with patient and his . He would like to be discharged. He understands that cultures are not finalized and understands that if he is discharged now he may be going on ineffective therapy. After discussing the risks and
benefits of discharge, he is comfortable with going home and accepts this risks.
Will continue to follow for full sensitivities of recovered coag negative staph. Patient understands that there is a possibility (although of low probability) that he may be required to return to the hospital to resume IV therapy.

Chief Complaint
-: Other (Pacer pocket infection; device contamination secondary to exposure to the environment.)
Subjective / Review of Systems
Patient seen and examined. Overall feels well. No specific complaints today.
Review of Systems: No Fever and No Chills
Vital Signs / Physical Exam
Vital Signs
Vital Signs
Temp Pulse Resp BP Pulse Ox
98.4 F 80 16 134/76 97
06/08/25 08:00 06/08/25 09:00 06/08/25 08:00 06/08/25 08:00 06/08/25 08:00
Physical Exam
Constitutional: No Acute Distress, Comfortable and Non-toxic
Eyes: No Conjunctival Hemorrhage and Sclera Anicteric
Cardiovascular: S1/S2 and Other (External pacer right neck area with overlying dressing and Tegaderm.); Negative S3/S4
Pulmonary: Clear; Negative Wheezes or Rales
Gastrointestinal: Soft and Non Tender
Wound: Other (Left ACW pocket with dressing in place. LORENA with serous fluid. Little to no surrounding erythema.)
Neurological: Awake and Alert
Psychological: Calm
Objective Data
Lab Data
Lab Results
06/07/25 04:15
06/08/25 05:58
Estimated Creat Clear 120 ml/min 06/08/25 05:58
Total Bilirubin 0.6 mg/dl (0.2-1.3) 06/05/25 10:13
AST 24 U/L (17-59) 06/05/25 10:13
ALT 21 U/L (0-50) 06/05/25 10:13
Alkaline Phosphatase 82 U/L (38-126) 06/05/25 10:13
Most recent labs reviewed.
Micro Results:
06/05/25 10:13 Blood Culture - Preliminary
Blood/Venous No Growth in 72 hours- Final report to follow
06/06/25 12:16 Wound Culture - Preliminary
Chest - Left Coagulase neg. staphylococcus
Gram Stain - Preliminary
06/06/25 12:16 Anaerobic Culture - Preliminary
Chest - Left Culture pending. Anaerobic cultures are examined after 3
days incubation. Additional information to follow.
Care Review
Plan reviewed with: Nurse and Physician
Total Time Spent with Patient (in minutes): Cardiology
[2025-06-08 12:07] VITALS: BP 126/79
[2025-06-08] MEDS: KEFLEX 500 MG PO (12:09)
[2025-06-08 12:11] VITALS: BP 126/79
--- NOTE | 2025-06-08 12:14 | PTCARENOTE ---
Pt reassessed. VSS. V-paced on tele in the 70s. BP 126/79. POX 97% on RA. Surgical sites stable. Sepideh Kee at bedside informing patient of anticipated discharge. Pt notified . No other changes from previous assessment.
--- NOTE | 2025-06-08 12:21 | W.PN.CARDCBS ---
Addendum entered and electronically signed by Osmin Ortega MD 06/08/25 16:35:
I saw and examined the patient.
The Carbonizer Tester's note was reviewed and I agree with the note.
Comment: GEN: No distress, awake, Ox3
HEENT: supple, anicteric, mmm
LUNGS: CTA, no wheezes/rales
CV: Reg, S1/S2, 1/6 syst LSB, no murmur
ABD: soft, BS+, NT/ND
EXT: No edema
NEURO: Gross non-focal
SKIN: Dressing intact with drain
PLan:
Appreciate ID input. Continue Keflex and doxycycline per ID.
Wound care instructions given.
Dressing change visit scheduled for June 12
Continue Toprol, Lasix, and hydralazine
Okay for discharge
Original Note:
Today's Communication / Plan
-
Continue antibiotics with Keflex and doxycycline for 7 days per ID
Wound care instruction discussed with the patient
Follow-up dressing change scheduled for 06/12/2025
Continue all other cardiac medications
Stable for discharge to home
Impression / Plan
-
PCP: Dr. Malhotra
Bladder Trimmer: Dr. Gurvinder Rincon
Audit Machine Operator: Dr. Dent
Impression:
s/p Medtronic BiV PPM 07/2018
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
Permanent Afib
s/p PVI and Convergent ablations
s/p AV node ablation 01/25/20
Chronic Anticoagulation with Xarelto
Chronic HFpEF, proBNP 1250
Improved CM EF was 40-45% by echo in 2016, improved to 55-60% by echo 2021 and stable at 55 to 60% by echo 12/05/2024
HTN
HLD
COPD with nocturnal oxygen
PVD with peripheral neuropathy
h/o DVT
h/o angioedema with ISAURA inhibitors
Echo 08/02/19:�EF 55%, dilated RV with overall preserved RV systolic function, mild MR, mild TR, dilated aortic root and proximal ascending aorta
Echo 08/13/2021 at [facility]: EF 50%, basal inferior wall motion abnormality, severe biatrial dilation, estimated PAP43 mmHg, mild-moderate MR, moderate TR
Echo 07/23/2022 at [facility]: EF 55-60%, elevated PAP at 65 mmHg, moderate TR
Echo 12/05/2024: EF 55 to 60%, severely dilated LA/RA, mild MR, moderate TR with PAP 40 mmHg
Impression:
-Direct admission 06/05/2025 for infected pacemaker device which had eroded through patient's skin. Anne has previous AV node ablation from 2019 with known permanent A-fib and is pacemaker dependent
-Status post extraction of hardware on 06/06/2024 (Dr. Dent). Now with Temporary permanent pacemaker implanted on right IJ with externalized pacemaker.
-Temporary permanent device was interrogated prior to discharge and is working well. EKG from 06/07/2025 and telemetry showing ventricular paced rhythm
-Dressing clean dry intact after being changed on 06/07/2025 both left shoulder with the device was extracted and the right IJ pacemaker lead
-Indwelling drain from extracted pocket with pink fluid
-Patient has appointment with Dr. Dent 06/12/2025 for dressing change/follow up
-Infectious disease consult appreciated and reviewed. Wound cultures with coag negative staph. ID is recommending oral Keflex and empiric doxycycline while cultures are pending. Patient aware antibiotic regimen may change pending cultures
- Decision for reimplantation likely in several weeks.
-Outpatient dose of Xarelto 20 mg to be resumed 06/08/2025 and evening
-EF previously 40 to 45% by echo in 2016, but improved and stable at 55 to 60% by echo 12/05/2024.
-No evidence of acute HF. Outpatient dose of Lasix 80 mg PO BID will be continued.
-Continue outpatient regimen of hydralazine, metoprolol, potassium, magnesium
-Would stay off Jardiance for now given cultures are still pending
- Patient would like to go home. He understands if he should develop any concerning cardiac symptoms including chest pain, shortness of breath, dizziness, lightheadedness, presyncope or syncope, fevers or chills he should return to hospital.
HPI 06/08/2025:
Patient presents to the hospital today as a direct admission for planned device and lead extraction for pocket erosion and possible PPM infection. Patient had a Medtronic BiV PPM placed 07/2018. Patient was seen in the office on 11/01/2024 and
appeared to be doing well at that time. Patient called our office on 05/13/2025 with concern that he could see wires protruding from his PPM pocket. Patient said that he had lost weight and noticed that wearing his seatbelt was starting to bother
him and when he inspected the site he thought he could see a wire eroding through the skin. Patient was then away on an [place] trip and when he returned on 05/28/2025 he called the office to say that he could now very clearly see his device
through the skin and patient was brought to the office for evaluation same day. Left lateral border of pacemaker was visible with pocket opening at about the size of a dime. The area was cleaned with Betadine and sterile dressing with Tegaderm
applied. Patient was started on Keflex 500 mg TID and direct admission for device and lead extraction arranged. In the meantime patient denies any fevers or chills and he has left the dressing in place and untouched. His last dose of Xarelto was
on 06/03/2025. His last dose of Jardiance was also on 06/03/2025.
Progress Note - Bladder Trimmer
Subjective
Date of Service: June 08, 2025
Patient seen and examined. Patient resting comfortably in chair. Reports he is eager to go home. Denies any concerning cardiac symptoms
Objective
Labs:
06/07/25 04:15
06/08/25 05:58
Labs
Hgb 13.8 g/dL (13.0-18.0) 06/07/25 04:15
Hct 41.5 % (39.0-52.0) 06/07/25 04:15
Plt Count 163 10^3/uL (130-400) 06/07/25 04:15
Sodium 137 mmol/L (135-145) 06/08/25 05:58
Potassium 4.5 mmol/L (3.5-5.1) 06/08/25 05:58
BUN 17 mg/dl (9-20) 06/08/25 05:58
Creatinine 0.6 mg/dL (0.7-1.3) L 06/08/25 05:58
Glucose 144 mg/dl (70-99) H 06/08/25 05:58
Vital Signs and I&O:
Vital Signs
Temp Pulse Resp BP Pulse Ox
98.7 F 73 16 126/79 96
06/08/25 12:11 06/08/25 12:11 06/08/25 12:11 06/08/25 12:11 06/08/25 12:11
Vital Signs
Temp Pulse Resp BP Pulse Ox
98.7 F 73 16 126/79 96
06/08/25 12:11 06/08/25 12:11 06/08/25 12:11 06/08/25 12:11 06/08/25 12:11
Intake & Output
06/06/25 06/07/25 06/08/25 06/09/25
06:59 06:59 06:59 06:59
Intake Total 840 / 840 480 / 480 240 / 240
Output Total 465 / 465 3725 / 3725 1100 / 1100
Balance 375 / 375 -3245 / -3245 -860 / -860
Physical Exam
Physical Exam
GEN: No distress, awake, Ox3, sitting in chair
HEENT: supple, anicteric, mmm; indwelling drain from explanted pacemaker site with pink fluid, temporary pacemaker on right IJ dressing clean dry and intact
LUNGS: CTA, no wheezes/rales
CV: Reg, S1/S2, no murmur, rub or gallop
ABD: soft, BS+, NT/ND
EXT: Trace edema on right, no edema on left lower extremity
NEURO: Gross non-focal
SKIN: No rash, warm, dry, pink
--- NOTE | 2025-06-08 12:40 | W.DS.TRANS ---
DC Summary - Computer Technology Teacher
-
Discharge Instructions:
Discharge Diagnosis/Procedures BiV pacemaker Lead extraction and temporary
external pacemaker implant
Diet Low Cholesterol
Driving Restrictions Not until seen by your Dr
Bathing Restrictions NO showering until temp pacer removed
Instructions:
Stand-Alone Forms: DC Inst - Implanted Device
Changes to Home Medications: Yes
Discharge Medications:
DC Medications w/original date entered in [facility]
rivaroxaban 20 mg tablet (Xarelto) 20 mg PO QPM #90 tabs 04/11/17
krill 500 mg-omega-3 150 mg-dha 45 mg-epa 75 zy-ybqjayy-stovu capsule (krill oil) 1 ea PO DAILY herbal 07/13/19
fluticasone fur. 100 mcg-umeclid 62.5 mcg-vilant 25 mcg inhalat.powder (Trelegy Ellipta) 1 puff inhalation R DAILY Lung/breathing issues 08/08/19
metoprolol succinate 50 mg tablet,extended release 24 hr 50 mg PO DAILY Blood pressure 10/15/20
multivitamin with folic acid 400 mcg tablet (Tab-A-Colleen) 1 tab PO DAILY Supplement 10/15/20
hydralazine 10 mg tablet 10 mg PO BID 30 days #60 tabs 09/14/22
guaifenesin 600 mg tablet, extended release 12 hr (Mucinex) 1,200 mg PO BID Congestion 09/20/22
furosemide 80 mg tablet 80 mg PO BID 30 days #60 tabs 09/25/22
potassium chloride 20 mEq tablet,extended release(part/cryst) (Klor-Con M) 60 meq PO BID 06/05/25
cephalexin 500 mg capsule 500 mg PO QID #28 caps 06/08/25
doxycycline hyclate 100 mg capsule 100 mg PO BID #14 caps 06/08/25
Home Medication Changes
Keflex 500 mg 4 times daily x 7 days
Doxycycline 100 mg twice daily x 7 days
Continue to hold Jardiance
Resume magnesium
Pending Results: Yes (Blood and wound cultures)
Total time spent discharging patient (in min): 38
--- NOTE | 2025-06-08 14:30 | PTCARENOTE ---
Discharge order received. PIV d/c. During review of discharge instructions with patient and , it was noticed that the medications were sent to the wrong pharmacy. Cardiology PA notified, and as per PA, ok to discharge patient and she will send
prescriptions to [facility] pharmacy. Pt also made me aware that Jardiance and magnesium were not included on home medication list, updated and notified Cardiology PA. Per Cardiology PA, patient is to resume magnesium as he was taking at home, but hold
Jardiance. Pt was notified of these instructions and is in agreement, instructions hand written on discharge instructions. Pt states understanding of all instructions. Pt wheeled out via wheelchair to car. Pt stable.
== END 2025-06-08 14:52 | disposition home health service (06) | DRG 261 ==
LOC: CVICU 09:03
PROVIDERS: Internal Medicine Cardiovascular Disease; Nurse Practitioner Adult Health; Physician Assistant Medical; ADMITTING PHYSICIAN Internal Medicine Cardiovascular Disease; CONSULT PHYSICIAN Internal Medicine Infectious Disease
PROC: 0KBJ0ZZ Excision of Left Thorax Muscle, Open Approach (ICD-10-PCS; 2025-06-06)
PROC: 5A1223Z Performance of Cardiac Pacing, Continuous (ICD-10-PCS; 2025-06-06)
PROC: 0JPT0PZ Removal of Cardiac Rhythm Related Device from Trunk Subcutaneous Tissue and Fascia, Open Approach (ICD-10-PCS; 2025-06-06)
PROC: 02HK3JZ Insertion of Pacemaker Lead into Right Ventricle, Percutaneous Approach (ICD-10-PCS; 2025-06-06)
PROC: 02PA3MZ Removal of Cardiac Lead from Heart, Percutaneous Approach (ICD-10-PCS; 2025-06-06)
PROC: 4B02XSZ Measurement of Cardiac Pacemaker, External Approach (ICD-10-PCS; 2025-06-07)
DX: T82.7XXA Infection and inflammatory reaction due to other cardiac and vascular devices, implants and grafts, initial encounter (principal); I42.8 Other cardiomyopathies; I48.21 Permanent atrial fibrillation; T82.110A Breakdown (mechanical) of cardiac electrode, initial encounter; I50.32 Chronic diastolic (congestive) heart failure; Y71.2 Prosthetic and other implants, materials and accessory cardiovascular devices associated with adverse incidents; I11.0 Hypertensive heart disease with heart failure; E78.5 Hyperlipidemia, unspecified; J44.9 Chronic obstructive pulmonary disease, unspecified; I73.9 Peripheral vascular disease, unspecified; G62.9 Polyneuropathy, unspecified; I49.5 Sick sinus syndrome; Z99.81 Dependence on supplemental oxygen; Z86.718 Personal history of other venous thrombosis and embolism; Z87.891 Personal history of nicotine dependence; Z79.01 Long term (current) use of anticoagulants
CPT/HCPCS: 11042; 33216; 33233; 33235; 71045; 80048; 80053; 81003; 81015; 83735; 83880; 85025; 85027; 86850; 86900; 86901; 86920; 87040; 87070; 87075; 87147; 87186; 87205; 90662; 93005; 93308; C1893; C1894; C1898; G0008; Q9967

== ENCOUNTER 2025-06-24 07:44 | Day surgery (SDC) | payer MEDICARE, OTHER, SELFPAY ==
[2025-06-24] VITALS (22 sets, daily range): BP systolic 104–143; BP diastolic 60–95
--- NOTE | 2025-06-24 12:15 | ITS.CL.PACE ---
Sales Facilitator - Pacemaker Implant
Pacemaker Implant
Procedure Report:
Dual Chamber Pacemaker Placement and removal of Tem Perm Pacer:
Mr. Loyd is a 75 yrs old gentleman (known to Dr. 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
development of pocket infection on the left shoulder s/p extraction of the hardware and antibiotics with resolution of infection and is here for conduction system placement on the right side.
Indications: chronic HFrecovered EF with AVJ and dependent patient with AV Block
Date of the Procedure: 06/24/2025
Pre-Operative Diagnosis: AV Block
Post-Operative Diagnosis: AV Block
Procedure Performed: DUAL CHAMBER PACEMAKER IMPLANTATION
Performing Physician:
Jitendra Dent MD
Anesthesia:
See anesthesia records
Pre-operative antibiotics:
Ancef 2gm IV
Detailed Description of the Procedure:
The patient was identified using hospital identification and informed consent obtained for the procedure. The risks were explained including, but not limited to: Bleeding, infection, arrhythmia, stroke, vascular/cardiac/lung puncture, surgery,
pacemaker dependency/device malfunction. All questions were answered.
The patient was brought to the electrophysiology laboratory in stable condition in fasting state. Continuous electrocardiographic and hemodynamic monitoring was initiated.
The initial rhythm was normal sinus rhythm.
A surgical pause and time out was performed immediately prior to the procedure with review of her medical history, recent labs, allergies and medications with site of procedure identified and consent noted in the chart. Antibiotics pre operatively
given. All team members concurred.
The procedure site was meticulously prepared with surgical scrub and allowed to dry with no pooling. Sterile draping was applied to cover the procedure site. The image intensifier was draped with sterile bag and positioned over the patient.
The right upper extremity venogram was done and the axillary route identified. There was patent subclavian vein. There was no cephalic vein noted. Following infiltration with local anesthetic, the axillary vein was accessed using the ultrasound
guidance using the micro-puncture apparatus. The vascular sheaths were introduced for lead access.
A subcutaneous pocket was created with blunt dissection and use of electrocautery. Hemostasis was excellent.
The guide wire was advanced to the RA and was advanced to the RV. The preformed curved long hemostatic peel away HIS sheath was advanced into the RV cavity. A left bundle pacing wire was advanced into the sheath to the tip with ventricular signals
noted with unipolar manner.
The HIS location was identified under guidance of the fluoroscopy and the pacing wire signals. The sheath with the pacing lead was moved deeper into the RV cavity on the septum at a more inferior and distal to the HIS signals.
There was sheath approximation confirmed on PRYDEINIG view. Once adequate signals were noted on the electrograms of the pacing lead in the sheath with W pattern signals on the RV septum, the lead was advanced and clockwise turns were done under
fluoroscopic guidance. The septum was engaged and the lead was paced intermittently after every 2-3 turns. The Impedance of the lead was measured that remained stable around 1000 Ohm. The lead was paced and septal pacing was noted. The sheath was
placed again to the septum and the lead was advanced 2-3 turns with pacing with each advancement. The ventricular capture was monitored throughout and the captures gradually changed from RV pacing to non-selective pacing to LBB pacing with R wave on
V1 morphology.
The long guiding sheath was cut and removed from the RV without change in lead position, impedance, sensing, or capture. The lead was sutured to the underlying pectoralis fascia with 0-silk stitches.
Then the attention was given to atrial lead. Atrial active lead was placed in the RA and into the RAA. There were excellent impedance and thresholds.
The sheaths were withdrawn, and the thresholds remained acceptable. The leads were secured in position at the venous entry site with Ti-Cron sutures. A pocket was fashioned contiguous to the incision.
The leads were attached to the pulse generator in standard configuration with acceptable sensing and threshold parameters. The pocket was irrigated with antibiotic solution; the pocket was inspected with no active bleeding noted. The device and the
leads were placed in the pocket.
The pocket was rinsed with antibiotics soaked solution. A Tyrx pouch was placed around the PPM and the leads.
Deep subcutaneous tissues were closed with three layers of 2-0 V loc sutures; and the dermis was reopposed using a running 4-0 Monocryl subcuticular suture.
Sponge counts / sharp counts were appropriate.
Procedure End:
The procedure was tolerated well. Aquacel bandaged was applied.
Estimated Blood loss:
5 cc
Specimens Removed:
No cultures and no specimens were obtained. No intraoperative pathology was identified.
Urine output:
None
Packs / Drains/ Tubes:
None
Instrument / Sponge Count Correct:
Yes
Flouro time:
3.1min / 2.83 Gycm2
Complications of the Procedure:
None
Condition of Patient at Time of Transfer:
Hemodynamically stable with no neurological or vascular compromise.
Device information:�
Generator: [employer]; Model: [id number]; Serial # [id number]�
RA pacing lead: [employer]; Model: 5076-45; Serial # [id number]
Measured data on the RV lead was sensing of 0.8 mV of AF waves, impedance of 456 ohms.
RV LBB pacing lead: Medtronic; Model: 3830-69; Serial # [id number]
Measured data on the RV lead was sensing of 10.6mV, impedance of 855 ohms and threshold of 0.5 V at 0.4ms�
PROGRAMMING PARAMETERS:�
Isidoro parameter settings were DDDR 70-130 �
Paced AV interval: 180ms
Sensed AV interval: 150 ms.
Rate Adaptive A-V Interval: on
Mode switch ON
Removal of Temporary Permanent Pacemaker:
Then the attention was given to the temp perm PPM. The dressings werre removed and the area was cleaned. The PPM canister was removed from the perm wire coming out of his right IJ. A stylet was placed that was able to reach the tip of the pacing
lead under fluoroscopy. The lead was unscrewed and was able to remove the distal screw and the ventricular lead fell down to the RV cavity. Under fluoro guidance, the permanent wire was successfully removed from the body.
The IJ access point was manually compressed. No bleeding noted.
Removed lead:
Medtronic lead 5076-58 SN# [id number] initially implanted on 06/06/2025 and explanted on 06/24/25.
Summary:
Successful implantation of MRI compatible dual chamber conduction system pacing permanent pacemaker and removal of temp permanent pacemaker.
Results/Recommendations:
-Please follow up CXR�
1. Please provide patient with adequate pain control
Instructions to be given to patient:�
- Please follow up with [facility] to get your wound checked within 14 days of your discharge.
- Do not wet incision site until after it is evaluated at cardiology clinic. No soaking or bath until then. Showers or Sponge baths are OK.�Dab dry the area after a shower.
- Do not lift right elbow above shoulder, particularly with sudden jerking movements, for 1 month�
- Do not lift anything weighing more than 10 pounds with the right arm for 1 month�
- If you notice any fevers, shortness of breath, lightheadedness, chest pain, or worsening swelling in the wound site, please contact the arrhythmia clinic, contact your block saw operator, or present to the hospital for evaluation.�
Jitendra Dent MD
Electrophysiology
--- NOTE | 2025-06-24 14:40 | W.PN.UPDATE ---
Update Note
Progress Note Update
Pt seen post temp-permanent RIJ Pacemaker removed and new right sided DC PPM implanted with 1 atrial lead and 1 LBBAP lead. Right ACW w/aquacel, minimal amount drainage noted to middle of dressing, no ht/bleeding. Right IJ site with gauze/tegaderm,
no ht/bleeding. Post EKG Vpaced 70s. Post CXR w/stable lead position, no pneumothorax. Prior explant site at Left ACW, DOZER OPERATOR, well healed with no ht, bleeding, oozing, erythema, drainage, pain. Activity limitations reviewed w/pt, verbalized
understanding. Will hold Xarelto tonight an resume on 06/25 in PM. Continue other meds as before. Incision check at [facility] in [address] Dent and will follow with Dr. Rincon thereafter.
Home later today after 2nd dose antibiotic and if tele/sites remain stable.
[2025-06-24] MEDS: ANCEF 5 IV (16:51)
== END 2025-06-24 17:00 | disposition home or self-care (01) ==
LOC: CATH 07:44
PROVIDERS: ATTENDING PHYSICIAN Internal Medicine Cardiovascular Disease; FAMILY PHYSICIAN Family Medicine; OTHER PHYSICIAN Internal Medicine Cardiovascular Disease
DX: I49.5 Sick sinus syndrome (principal); J98.11 Atelectasis; I11.0 Hypertensive heart disease with heart failure; I50.32 Chronic diastolic (congestive) heart failure; I44.30 Unspecified atrioventricular block; Z88.8 Allergy status to other drugs, medicaments and biological substances; I48.21 Permanent atrial fibrillation; J44.9 Chronic obstructive pulmonary disease, unspecified; E78.5 Hyperlipidemia, unspecified; Z79.01 Long term (current) use of anticoagulants; Z79.899 Other long term (current) drug therapy
CPT/HCPCS: 33208; 71045; 93005; C1769; C1785; C1887; C1898; Q9967